=== PATIENT | male | born 2000 | race Caucasian/White ===

== ENCOUNTER 2022-12-04 20:36 | Emergency (ER) | payer OTHER ==
[2022-12-04] MEDS ORDERED: LIDOCAINE 1% MPF 5 ML VIAL ONE (21:02)
[2022-12-04] MEDS ORDERED: SMZ./TMP. 800/160 MG TABLET ONE (21:02)
[2022-12-04] MEDS ORDERED: BUPIVACAINE 0.5% PF 10 ML VIAL ONE (21:02)
--- NOTE | 2022-12-04 22:13 | ER ---
Nurse's Notes [facility] Name: Aníbal Dejesus Age: 22 yrs Sex: Male : 2000 Arrival Date: 12/04/2022 Time: 20:36 Bed 10 Private MD: Diagnosis: Puncture wound with foreign body of right hand, initial encounter-middle finger, FB removed Presentation: 12/04 20:49 Chief complaint: Patient states: "2 days ago I was at work and had a piece of wood in mb9 my right middle finger. The piece was stinking out but now I feel like it's still in there and there is pus". Coronavirus screen: Vaccine status: Patient reports receiving the 2nd dose of the covid vaccine. Ebola Screen: No symptoms or risks identified at this time. Initial Sepsis Screen: Does the patient meet any 2 criteria? No. Patient's initial sepsis screen is negative. Does the patient have a suspected source of infection? No. Patient's initial sepsis screen is negative. Risk Assessment: Do you want to hurt yourself or someone else? Patient reports no desire to harm self or others. Onset of symptoms was December 04, 2022. 20:49 Method Of Arrival: Ambulatory mb9 20:49 Acuity: LIZA 4 mb9 Triage Assessment: 20:51 General: Appears in no apparent distress. Behavior is calm, cooperative. Pain: mb9 Complains of pain in right hand. Neuro: Barker Agitation-Sedation Scale (RASS): 0 - Alert and Calm Level of Consciousness is awake, alert, obeys commands, Oriented to person, place, time, situation, Appropriate for age. Cardiovascular: Patient's skin is warm and dry. Respiratory: Airway is patent Respiratory effort is even, unlabored, Respiratory pattern is regular, symmetrical. Derm: Skin is normal. Musculoskeletal: Range of motion: intact in all extremities, Swelling present in right middle finger. Injury Description:. Historical: - Allergies: 20:50 No Known Allergies; mb9 - Home Meds: 20:50 Abilify oral [Active]; Buspirone Oral [Active]; mb9 - PMHx: 20:50 Bipolar disorder; Schizophrenia; mb9 - PSHx: 20:50 None; mb9 - Immunization history:: Adult Immunizations up to date. - Social history:: Smoking status: Patient reports the use of cigarette tobacco products, smokes one pack cigarettes per day. Screenin:53 [facility] ED Fall Risk Assessment (Adult) History of falling in the last 3 months, mb9 including since admission No falls in past 3 months (0 pts) Confusion or Disorientation No (0 pts) Intoxicated or Sedated No (0 pts) Impaired Gait No (0 pts) Mobility Assist Device Used No (0 pt) Altered Elimination No (0 pt) Score/Fall Risk Level 0 - 2 = Low Risk Oriented to surroundings, Maintained a safe environment, Educated pt \\T\\ family on fall prevention, incl call for assistance when getting out of bed. Abuse screen: Denies threats or abuse. Nutritional screening: No deficits noted. Tuberculosis screening: No symptoms or risk factors identified. Assessment: 20:52 Reassessment: see triage assessment. mb9 22:14 Reassessment: No changes from previously documented assessment. Patient and/or family mb9 updated on plan of care and expected duration. Pain level reassessed. Patient is alert, oriented x 3, equal unlabored respirations, skin warm/dry/pink. Vital Signs: 20:49 BP 107 / 90; Pulse 94; Resp 20; Temp 97.9(O); Pulse Ox 100% on R/A; Weight 97.52 kg; mb9 Height 5 ft. 8 in. ; Pain 3/10; 22:14 BP 112 / 71; Pulse 74; Resp 18; Pulse Ox 100% ; mb9 20:49 Body Mass Index 32.69 (97.52 kg, 172.72 cm) mb9 20:49 Pain Scale: Adult mb9 ED Course: 20:42 Patient arrived in ED. kj1 20:43 Corinne Rich RN is Primary Nurse. mb9 20:44 Deya Roth FNP-C is PHCP. kb 20:44 Horace Ruano MD is Attending Physician. kb 20:49 Arm band placed on. mb9 20:50 Triage completed. mb9 20:53 Placed in gown. Bed in low position. Call light in reach. Side rails up X 1. Client mb9 placed on continuous cardiac and pulse oximetry monitoring. NIBP monitoring applied. 20:53 No provider procedures requiring assistance completed. Patient did not have IV access mb9 during this emergency room visit. Administered Medications: 20:56 Drug: Trimethoprim-Sulfamethoxazole PO (160 mg-800 mg (DS) 1 tablet Route: PO; mb9 22:06 Follow up: Response: No adverse reaction mb9 22:05 Drug: Bupivacaine Infiltration (0.5 %) 1 vials Volume: 10 ml; Route: Infiltration; mb9 22:06 Drug: Lidocaine Infiltration (1 %) 1 vials Volume: 5 ml; Route: Infiltration; mb9 Medication: 20:53 VIS not applicable for this client. mb9 Outcome: 22:13 Discharge ordered by . jammie 22:14 Discharged to home ambulatory. mb9 22:14 Condition: stable 22:14 Discharge instructions given to patient, Instructed on discharge instructions, follow up and referral plans. Demonstrated understanding of instructions, follow-up care, medications, Prescriptions given X 1. 22:19 Patient left the ED. mb9 Signatures: Deya Roth, OPERATIONS ADMINISTRATIVE ASSISTANT-C OPERATIONS ADMINISTRATIVE ASSISTANT-Chanda Johnson [email or web address] Corinne Rich, RN RN mb9
--- NOTE | 2022-12-04 22:14 | EDPHYS ---
Physician Documentation [facility] Name: Aníbal Dejesus Age: 22 yrs Sex: Male : 2000 Arrival Date: 12/04/2022 Time: 20:36 Bed 10 Private MD: ED Physician Horace Ruano HPI: 12/04 23:42 This 22 yrs old Male presents to ER via Ambulatory with complaints of Finger Injury. kb 23:42 The patient or guardian reports injury, pain, a puncture wound, swelling, tenderness. kb The complaints affect the palmar aspect of proximal phalanx of right middle finger. Context: The problem was sustained outdoors, resulted from doing yard work and got a splinter. Onset: The symptoms/episode began/occurred 2 day(s) ago. Modifying factors: The symptoms are alleviated by nothing, the symptoms are aggravated by nothing. Associated signs and symptoms: The patient has no apparent associated signs or symptoms. Severity of symptoms: At their worst the symptoms were moderate, in the emergency department the symptoms are unchanged. The patient has not experienced similar symptoms in the past. The patient has not recently seen a physician. Pt reports he was doing yard work 2 days ago and got a splinter in right middle finger. States he was unable to remove splinter because it went all the way into the finger. States he has had increased swelling and redness to finger. Today noticed drainage from puncture wound. Historical: - Allergies: 20:50 No Known Allergies; mb9 - Home Meds: 20:50 Abilify oral [Active]; Buspirone Oral [Active]; mb9 - PMHx: 20:50 Bipolar disorder; Schizophrenia; mb9 - PSHx: 20:50 None; mb9 - Immunization history:: Adult Immunizations up to date. - Social history:: Smoking status: Patient reports the use of cigarette tobacco products, smokes one pack cigarettes per day. ROS: 23:40 Constitutional: Negative for fever, chills, and weight loss. kb 23:40 Skin: Positive for erythema, swelling, of the palmar aspect of proximal phalanx of right middle finger, foreign body. 23:40 All other systems are negative. Exam: 23:40 Constitutional: This is a well developed, well nourished patient who is awake, alert, kb and in no acute distress. Head/Face: Normocephalic, atraumatic. ENT: Moist Mucous membranes Cardiovascular: Regular rate and rhythm with a normal S1 and S2. No gallops, murmurs, or rubs. No pulse deficits. Respiratory: Respirations even and unlabored. No increased work of breathing. Talking in full sentences MS/ Extremity: Pulses equal, no cyanosis. Neurovascular intact. Full, normal range of motion. Neuro: Awake and alert, GCS 15, oriented to person, place, time, and situation. Moves all extremities. Normal gait. 23:40 Skin: puncture wound to right middle finger with purulent drainage. swelling and erythema to right middle finger. Vital Signs: 20:49 BP 107 / 90; Pulse 94; Resp 20; Temp 97.9(O); Pulse Ox 100% on R/A; Weight 97.52 kg; mb9 Height 5 ft. 8 in. ; Pain 3/10; 22:14 BP 112 / 71; Pulse 74; Resp 18; Pulse Ox 100% ; mb9 20:49 Body Mass Index 32.69 (97.52 kg, 172.72 cm) mb9 20:49 Pain Scale: Adult mb9 Procedures: 23:44 Foreign Body Removal: sliver of wood, from the right palmar aspect of proximal phalanx kb of right middle finger, by incising to remove, Dressinx4s were used to dress the wound, The patient tolerated the removal well. Nerve block: (digital) of palmar aspect of proximal phalanx of right middle finger Medication: Lidocaine 1% without epinephrine Marcaine 0.5%, Amount: 3 mls were injected, Effect: Set up for procedure. Performed by Deya MUNGUIA Patient tolerated well. MDM: 20:44 Patient medically screened. kb 23:41 Data reviewed: vital signs, nurses notes. kb 23:43 Differential diagnosis: foreign body, abscess, cellulitis. Counseling: I had a detailed kb discussion with the patient and/or guardian regarding: the historical points, exam findings, and any diagnostic results supporting the discharge/admit diagnosis, the need for outpatient follow up, a hand specialist, to return to the emergency department if symptoms worsen or persist or if there are any questions or concerns that arise at home. Administered Medications: 20:56 Drug: Trimethoprim-Sulfamethoxazole PO (160 mg-800 mg (DS) 1 tablet Route: PO; mb9 22:06 Follow up: Response: No adverse reaction 22:05 Drug: Bupivacaine Infiltration (0.5 %) 1 vials Volume: 10 ml; Route: Infiltration; 9 22:06 Drug: Lidocaine Infiltration (1 %) 1 vials Volume: 5 ml; Route: Infiltration; mb9 Disposition Summary: 12/04/22 22:13 Discharge Ordered Location: Home kb Condition: Stable kb Diagnosis - Puncture wound with foreign body of right hand, initial encounter - middle finger, kb FB removed Followup: kb - With: Emergency Department - When: As needed - Reason: Worsening of condition Followup: kb - With: Private Physician - When: 2 - 3 days - Reason: Recheck today's complaints, Continuance of care, Re-evaluation by your physician Discharge Instructions: - Discharge Summary Sheet kb - Puncture Wound, [id number] kb - Skin Foreign Body kb Forms: - Medication Reconciliation Form kb - Thank You Letter kb - Antibiotic Education kb - Prescription Opioid Use kb Prescriptions: - Bactrim DS 800-160 mg Oral Tablet - take 1 tablet by ORAL route every 12 hours for 10 days; 20 tablet; Refills: 0, kb Product Selection Permitted Signatures: Deya Roth, FRONT DESK HOST-C FRONT DESK HOST-Ckb Corinne Rich, RN RN mb9
[2022-12-04 22:42] VITALS: TEMP 97.9; O2SAT 100
[2022-12-04 22:44] VITALS: BP 112/71
== END 2022-12-04 22:19 | disposition home or self-care (01) ==
LOC: ER 20:36
DX: S61.242A Puncture wound with foreign body of right middle finger without damage to nail, initial encounter (principal); F17.210 Nicotine dependence, cigarettes, uncomplicated; F20.9 Schizophrenia, unspecified
CPT/HCPCS: J2001